=== PATIENT | female | born 1985 | race Caucasian/White ===

== ENCOUNTER → 2018-10-11 | Outpatient (REF) | payer OTHER ==
[2018-10-11 10:59] LABS: DRVV SCREEN 37.9 SEC
[2018-10-11 11:07] LABS: RHEUMATOID FACTOR QUANT < 10.0 IU/ML (<15.0); TOTAL PROTEIN 6.7 GM/DL (6.4-8.2)
[2018-10-11 11:09] LABS: PTT LUPUS TYPE ANTICOAG SCREEN 0.9 (0-1.2)
[2018-10-12 14:34] LABS: ANTINUCLEAR ANTIBODIES DIRECT Negative (Negative)
[2018-10-13 13:29] LABS: ALBUMIN % 63.2 % (55.8-66.1); ALPHA-1-GLOBULIN % 5.1 % (2.9-4.9); ALPHA-2-GLOBULINS % 9.1 % (7.1-11.8); BETA-1-GLOBULINS % 6.8 % (4.7-7.2); BETA-2-GLOBULINS % 4.6 % (3.2-6.5); GAMMA GLOBULIN % 11.2 % (11.1-18.8)
[2018-10-13 13:30] LABS: ALBUMIN 4.23 GM/DL (3.29-5.55); ALPHA-1-GLOBULINS 0.34 GM/DL (0.17-0.41); ALPHA-2-GLOBULINS 0.61 GM/DL (0.42-0.99); BETA-1-GLOBULINS 0.46 GM/DL (0.28-0.60); BETA-2-GLOBULINS 0.31 GM/DL (0.19-0.55); GAMMA GLOBULINS 0.75 GM/DL (0.65-1.58)
== END ==
LOC: M LABNEURO 09:16
PROVIDERS: ATTEND Psychiatry & Neurology Neurology
DX: M79.643 Pain in unspecified hand (principal); M54.2 Cervicalgia

== ENCOUNTER 2019-02-24 17:09 | Emergency (ER) | payer OTHER ==
[~2019-02-24] VITALS: Ht 160 cm; Wt 95.4 kg
[2019-02-24 17:10] VITALS: BP 145/83
[2019-02-24] MEDS ORDERED: SYNT75TA (17:27)
[2019-02-24] MEDS ORDERED: DIAZ5TAB (17:27)
[2019-02-24] MEDS ORDERED: OXYC-517 (17:27)
[2019-02-24] MEDS ORDERED: GABA-843 (17:27)
[2019-02-24] MEDS ORDERED: AMPH25CA (17:27)
[2019-02-24] MEDS ORDERED: CIPRODEX AD (17:57)
[2019-02-24] MEDS ORDERED: AUGM875T28 PO (17:57)
== END 2019-02-24 18:24 | disposition home or self-care (01) ==
LOC: M ED 17:09
DX: H60.91 Unspecified otitis externa, right ear (principal); H66.91 Otitis media, unspecified, right ear; E03.9 Hypothyroidism, unspecified; Z79.899 Other long term (current) drug therapy; Z79.890 Hormone replacement therapy